=== PATIENT | female | born 1965 | race Caucasian/White ===

== ENCOUNTER 2016-09-16 17:23 | Inpatient (IN) | payer MEDICARE, OTHER ==
--- NOTE | ~2016-09-16 | HP ---
History And Physical [place] [id number] [facility] [place]. [address] NAME: ANNABELLA PROCTOR : 61 STATUS : ADM Laz PAT#: [id number] AGE: 50 ADM/REG DATE : 09/16/16 MR#: [id number] REPORT SERV DATE: 09/17/16 DICTATED BY: ROLANDO LE DATE: 09/16/16 REPORT STATUS : Draft TRANSCRIBED BY: MODElver DATE: 09/16/16 DATE OF ADMISSION: 09/16/2016 HISTORY OF PRESENT ILLNESS: Ms. Proctor is a 50-year-old female patient with a history of bipolar depression, migraine headaches, and COPD for which she takes multiple medications on a regular basis comes in because of nausea, vomiting, and abdominal soreness from the nausea and vomiting for the last three days. The patient also reports diarrhea for the last three days. The patient states that she may have thrown up at least five or six times a day and had at least seven to eight times a day of diarrhea and has not been able to keep anything down whatsoever for the last three days. According to the patient, history of presenting illness is that all what this brought about was her mother moving in with her. She states that her mother lives in another state and she was supposed to be put into Bridge here in the [facility] [place], and hence, the family brought her over here. The patient states that she is the only one who is taking care of her mother, and for the last few weeks, she could not handle it. She states that it is too much for her to take care of her mother who is pretty much bed-bound and the patient did not give me a reason as to why. However, she states that the stress of it has been too much on her, she has doubled up on her smoking and she has been so stressed and all this started while she was being stressed about three days ago she stays. She actually had thrown up so much that she passed out. is with the patient and he gives me all this history also. REVIEW OF SYSTEMS: The patient denies any headache at this time, any chest pain, shortness of breath, or fever. She does state that her upper abdomen is sore because of all the throwing up. She denies any lower abdominal soreness. She denies any blood in stool, dysuria, or hematuria. She denies any other acute joint pains, etc. PAST MEDICAL HISTORY: Significant for bipolar disorder, depression, chronic migraine headaches for which she takes Topamax and other narcotics, and also COPD. SOCIAL HISTORY: The patient smokes about two packs a day, does not drink any alcohol. She denies any illicit drug use and she is and lives with her . Recently, the stress of taking care of her mother has been too much for her. FAMILY HISTORY: Positive for diabetes in both parents. ALLERGIES: THE PATIENT IS ALLERGIC TO ANESTHETICS LIKE AMIDE TYPE AND TAL TYPE OF ANESTHETICS AND FENOFIBRATE. MEDICATIONS: The patient states that her regular medications include Zovirax 800 mg once a day that she takes for prevention of herpes, Ventolin HFA two puffs every four hours, baclofen 10 mg once a day, Bumex 1 mg once a day, fluoxetine 20 mg once a day, fluticasone nasal spray, [place]co 10/325 one every six hours p.r.n., Imdur 30 mg once a day, Latuda 60 mg once a day, Mobic 15 mg once a day, Singulair 10 mg once a day, MS Contin 15 mg once a day for migraines, Lyrica 150 mg p.o. t.i.d., Spiriva Respimat, and Topamax 100 mg twice a day. History And Physical [address] [address] NAME: ANNABELLA PROCTOR : 61 STATUS : ADM Laz PAT#: [id number] AGE: 50 ADM/REG DATE : 09/16/16 MR#: [id number] REPORT SERV DATE: 09/17/16 DICTATED BY: ROLANDO LE DATE: 09/16/16 REPORT STATUS : Draft TRANSCRIBED BY: MODL DATE: 09/16/16 PHYSICAL EXAMINATION: GENERAL: On examination, the patient is alert, oriented, able to give her history herself. She appears weak. Her skin and mucous membranes appear very dry. NECK: There is no JVD thyromegaly. HEENT: There is no facial asymmetry or droop. CARDIOVASCULAR SYSTEM: S1 and S2 appreciated. Sinus rhythm. No murmurs, rubs, or gallops noted. RESPIRATORY SYSTEM: Clear lungs. Poor entry to the lung bases noted probably because of her central obesity and also her not moving the upper part of the abdomen. She states that the abdomen itself is sore from all the throwing up. ABDOMEN: There is definitely tenderness in the upper aspect of the abdomen, but there is no guarding or rigidity. Bowel sounds are appreciated. Rest of the abdomen is normal. There is no hepatosplenomegaly or masses. No organomegaly. EXTREMITIES: There is no pedal edema. Pedal pulses are well felt. NEUROLOGIC: Normal. No deficits. MUSCULOSKELETAL: Normal at this time. PSYCHIATRIC: Positive for bipolar depression. LABORATORY DATA: Labs that I have on this patient shows an elevated WBC count at 13,000 and electrolyte profile shows low potassium at 2.6. Her BUN is normal. Creatinine is normal. Blood glucose level is 107. Amylase is normal. Lipase is normal. CT scan of the abdomen shows no acute abnormality except that the lower part of the lungs have a ground-glass appearance suggesting infiltrate/inflammation. UA is negative for any infection even though urine is just cloudy. ASSESSMENT: My assessment on this patient is dehydration from nausea, vomiting, and diarrhea. At this time, I do not know the cause. 1. Bibasilar infiltrates on chest x-ray, probably inflammation/possible that it is just atelectasis of both lungs as the patient has poor mobility of her chest now because of her upper abdominal pain. 2. For this, admit the patient, replace IV fluids, potassium and symptomatically treat the patient for pain, nausea, and vomiting. For the bibasilar infiltrates, we will repeat a chest x-ray, but we will start her on IV azithromycin 500 mg once a day. 3. Regarding diagnostic workup, we will go ahead and check a procalcitonin level and lactate level. 4. We will also check an EKG. 5. We will repeat a chest x-ray. 6. For her diarrhea, we will send off stool for ova, parasites, Clostridium difficile, stool culture, and also stool for Hemoccult. We will put this patient under observation and observe to see how her symptoms will die turner within the next day or so and also repeat her electrolytes to make sure that her potassium is corrected. I will follow this patient as an observation. History And Physical [address] [place]. [address] NAME: ANNABELLA PROCTOR : 61 STATUS : ADM Laz PAT#: [id number] AGE: 50 ADM/REG DATE : 09/16/16 MR#: [id number] REPORT SERV DATE: 09/17/16 DICTATED BY: ROLANDO LE DATE: 09/16/16 REPORT STATUS : Draft TRANSCRIBED BY: MODL DATE: 09/16/16 RRA/JUNIORL Rolando Le M.D. / [id number] CC: Christo Romo UDIT
--- NOTE | ~2016-09-16 | DS ---
Discharge Summary [facility] [address] [place]. [address] NAME: ANNABELLA VALENCIA : 61 STATUS : DIS IN PAT#: [id number] AGE: 50 ADM/REG DATE : 09/16/16 MR#: [id number] REPORT SERV DATE: 09/19/16 DICTATED BY: ROLANDO LE DATE: 09/18/16 REPORT STATUS : Draft TRANSCRIBED BY: MODL DATE: 09/18/16 ADMISSION DATE: 09/16/2016 DISCHARGE DATE: 09/18/2016 Date of discharge from observation is 09/18/2016. CONDITION ON DISCHARGE: Stable. DISPOSITION: Discharged to home. ADVICE ON DISCHARGE: To follow up with GI specialist within the next four to six weeks as the patient is over 50 years of age and needs a colonoscopy for screening and besides her stool Hemoccult is positive. Even though there is no alexander visible bleed, the patient attributes this to constipation. There is still some blood in stool, could be from hemorrhoids, but the patient does need a colonoscopy, this was made very clear to the patient. The patient will also follow up with PCP within the next one to two weeks. DIAGNOSES ON DISCHARGE: 1. Dehydration from nausea, vomiting, and diarrhea - resolved. Nausea and vomiting from acute gastritis, probably resolved. 2. Unspecified or nonspecific diarrhea - resolved. 3. Hypokalemia - resolved. 4. Bilateral pulmonary infiltrates in the lung bases, which are probably nonspecific as the patient has negative lactate and procalcitonin level and her leukocytosis has resolved. However, she just finished three more days of azithromycin to finish her course of Z-Justin. She was given two days worth of IV azithromycin while in the hospital. She feels much better on the day of discharge, and we are advancing her diet from full liquids to soft solids, and if she tolerates this, the patient will be going on home. Her regular and chronic problems that have been addressed in history and physical exam have all remained stable at this time and these include multiple psychiatric issues including depression, bipolar disorder, anxiety. The patient also is on chronically dependent on narcotics for migraine headaches for which she gets prescriptions for morphine from her primary care physician. The patient also takes Topamax and a host of other medications, which will all be resumed at this time. She is also on high blood pressure pills, which will all be resumed at this time. COPD, stable. The patient has been advised to stop smoking completely and she understands the risks of continuing to smoke. Most recent lab reports I have on this patient include a CBC that shows a WBC count of 7.8, Discharge Summary [place] [address] [place]. [address] NAME: ANNABELLA VALENCIA : 61 STATUS : DIS IN PAT#: [id number] AGE: 50 ADM/REG DATE : 09/16/16 MR#: [id number] REPORT SERV DATE: 09/19/16 DICTATED BY: ROLANDO LE DATE: 09/18/16 REPORT STATUS : Draft TRANSCRIBED BY: MODL DATE: 09/18/16 hemoglobin 11.4, hematocrit 35.2, and platelet count of 261. Her electrolytes are normal now, so is BUN and creatinine. Stool cultures have come back negative for Shiga toxin, negative for C. diff, and negative for ova and parasites, negative for Giardia and Cryptosporidium. The patient will be going home on the following medications: The only new medications as mentioned above will be azithromycin 250 mg once a day for three more days; Diflucan 150 mg x1 dose to prevent yeast infection; and also the patient requests Ativan specifically for anxiety, so I have given her a prescription for 1 mg of Ativan to take half a tablet twice a day #5 only and no more. The patient is to follow up with her psychiatrist regarding her anxiety, bipolar disorder, and depression. The patient will resume the following home medications: Zovirax 800 mg once a day for prevention of recurrent herpes, Bumex 1 mg once a day, Sarafem 60 mg once a day, Latuda 60 mg once a day, Lyrica 150 mg p.o. t.i.d., Imdur 30 mg once a day, Spiriva as directed, Topamax 100 mg tablet once a day, and Singulair 10 mg tablet once a day. The patient will also resume her baclofen 10 mg once a day, MS Contin 15 mg once a day, Mobic 15 mg once a day, and her fluticasone nasal spray besides the Ventolin. The patient hence is being discharged from observation in stable condition. I have spent about 35 minutes in coordinating discharge care of this patient including face- to-face encounter and summarizing this discharge. DICTATED BY: Christo Romo/ERLINDA Rolando Le M.D. / [id number] CC: Chrsito Romo UDIT
[2016-09-16 16:11] LABS: WBC (NOT ORDERED) (RFLEX) 0 (0-5)
[2016-09-16 16:19] LABS: BASOPHILS 0.1 %; BASOPHILS ABSOLUTE 0.02 10/3/uL (0.0-0.16); EOSINOPHILS 0.1 %; EOSINOPHILS ABSOLUTE 0.02 10/3/uL (0.0-0.53); ER CBC TAT 0 Hrs 09 Mins; HEMATOCRIT 39.3 % (36.0-48.0); HEMOGLOBIN 13.5 g/dL (12.0-16.0); IMMATURE GRANULOCYTES 0.1 %; IMMATURE GRANULOCYTES ABSOLUTE 0.02 10/3/uL (0.0-0.11); LYMPHOCYTES 9.7 %; LYMPHOCYTES ABSOLUTE 1.34 10/3/uL (0.67-4.30); MEAN CORPUS HGB CONC 34.4 g/dL (32.0-36.0); MEAN CORPUSCULAR HEMOGLOB 32.9 pg (26.0-34.0); MEAN CORPUSCULAR VOLUME 95.9 fL (80-100); MEAN PLATELET VOLUME 11.8 fL (9.2-13.0); MONOCYTES 4.9 %; MONOCYTES ABSOLUTE 0.68 10/3/uL (0.21-1.20); NEUTROPHILS 85.1 %; NEUTROPHILS ABSOLUTE 11.74 10/3/uL (2.02-8.40); PLATELET COUNT 291 10/3/uL (150-400); RBC DISTRIBUTION WIDTH 13.8 % (12.0-16.0); WHITE BLOOD CELLS 13.8 10/3/uL (4.5-10.5)
[2016-09-16 16:20] LABS: ASCORBIC ACID (UR NOT ORDER) NEG (NEG); BILIRUBIN, URINE NEGATIVE (NEG); ER URINALYSIS TAT 0 Hrs 10 Mins; KETONE, URINE 20 MG/DL (NEG); LEUKOCYTE ESTERASE(NOT OR NEG (NEG); MANUAL DIFF NO %; NITRITE (URINE) NEG (NEG)
[2016-09-16 16:35] LABS: A/G RATIO 0.6 (0.7-1.9); ALBUMIN 2.8 G/DL (3.5-5.0); ALKALINE PHOSPHATASE 110 U/L (45-117); BUN (BLOOD UREA NITROGEN) 14 MG/DL (6-23); CALCIUM, SERUM 9.6 MG/DL (8.5-10.4); CHLORIDE, SERUM 108 MMOL/L (96-112); CO2 (CARBON DIOXIDE) 28 MMOL/L (24-34); GFR AFRICAN AMERICAN 121 ML/MIN (>=60); GFR NON AFRICAN AMERICAN 105 ML/MIN (>=60); GLOBULIN 4.5 G/DL (2.5-4.1); GLUCOSE, SERUM 107 MG/DL (60-99); SGOT(AST) 11 U/L (5-40); SGPT(ALT) 15 U/L (5-65); SODIUM, SERUM 143 MMOL/L (135-148); TOTAL BILIRUBIN 0.4 MG/DL (0-1.2); TOTAL PROTEIN 7.3 G/DL (6.0-8.5)
[2016-09-16 16:38] LABS: POTASSIUM, SERUM 2.6 MMOL/L (3.5-5.3)
[~2016-09-16 17:23] MED LIST: *UNABLE3; ADVAIR250; ADVAIR250 INH; ASAB PO; ATORVASTATIN PO; BUM1 PO; EXCEDRIN EXTRA1 EACH PO; FLONASE NAS; HYDROCHLOROT25 MG PO; IMDUR30 PO; ISOSORBIDE PO; LATUDA60 MG PO; LIPITOR20 PO; LYRICA150 MG PO; MOBIC15 MG PO; NORCO1 TAB PO; PROAIR HFA INH; PROTONIX PO; PROVENTSOL INH; PROZAC PO; SINGULAIR1 PO; SPIRIVA; SPIRIVA INH; STOOL SOFTNER PO; TOPAMAX100 PO; VITAMIN D3 PO; ZOVI800 PO; [UNRECOGNIZED DRUG - OTHER] V
[2016-09-16] MEDS ORDERED: SARAFEM20 M1 PO (17:24)
[2016-09-16] MEDS ORDERED: LATUDA60 MG PO (17:24)
[2016-09-16] MEDS ORDERED: LYRICA150 MG PO (17:25)
[2016-09-16] MEDS ORDERED: SPIRIVA RESPIMAT INH (17:28)
[2016-09-16] MEDS ORDERED: IMDUR30 PO (17:28)
[2016-09-16] MEDS ORDERED: SINGULAIR1 PO (17:30)
[2016-09-16] MEDS ORDERED: TROKENDI PO (17:30)
[2016-09-16] MEDS ORDERED: NORCO1 TAB PO (17:31)
[2016-09-16] MEDS ORDERED: VENTOLIN HFA INH (17:32)
[2016-09-16] MEDS ORDERED: FLONASE NAS (17:32)
[2016-09-16] MEDS ORDERED: LIOR10 PO (17:33)
[2016-09-16] MEDS ORDERED: TOPAMAX100 PO (17:35)
[2016-09-16] MEDS ORDERED: MSCONT15 PO (17:37)
[2016-09-16] MEDS ORDERED: MOBIC15 MG PO (17:37)
[2016-09-16 21:52] LABS: PROCALCITONIN 0.07 ng/mL (<0.5)
[2016-09-17 07:18] LABS: BASOPHILS 0.1 %; BASOPHILS ABSOLUTE 0.01 10/3/uL (0.0-0.16); EOSINOPHILS 1.2 %; EOSINOPHILS ABSOLUTE 0.12 10/3/uL (0.0-0.53); HEMATOCRIT 35.5 % (36.0-48.0); HEMOGLOBIN 11.7 g/dL (12.0-16.0); IMMATURE GRANULOCYTES 0.2 %; IMMATURE GRANULOCYTES ABSOLUTE 0.02 10/3/uL (0.0-0.11); LYMPHOCYTES 22.3 %; LYMPHOCYTES ABSOLUTE 2.26 10/3/uL (0.67-4.30); MEAN CORPUSCULAR HEMOGLOB 32.2 pg (26.0-34.0); MEAN CORPUSCULAR VOLUME 97.8 fL (80-100); MEAN PLATELET VOLUME 11.4 fL (9.2-13.0); MONOCYTES 6.4 %; MONOCYTES ABSOLUTE 0.65 10/3/uL (0.21-1.20); NEUTROPHILS 69.8 %; NEUTROPHILS ABSOLUTE 7.09 10/3/uL (2.02-8.40); PLATELET COUNT 236 10/3/uL (150-400); RBC DISTRIBUTION WIDTH 14.1 % (12.0-16.0); RED CELL COUNT 3.63 10/6/uL (4.0-5.6); WHITE BLOOD CELLS 10.2 10/3/uL (4.5-10.5)
[2016-09-17 07:20] LABS: MANUAL DIFF NO %
[2016-09-17 07:34] LABS: BUN (BLOOD UREA NITROGEN) 11 MG/DL (6-23); CALCIUM, SERUM 8.7 MG/DL (8.5-10.4); CHLORIDE, SERUM 112 MMOL/L (96-112); CO2 (CARBON DIOXIDE) 25 MMOL/L (24-34); CREATININE 0.58 MG/DL (0.55-1.02); GFR AFRICAN AMERICAN 123 ML/MIN (>=60); GFR NON AFRICAN AMERICAN 106 ML/MIN (>=60); SGOT(AST) 13 U/L (5-40); SGPT(ALT) 11 U/L (5-65); SODIUM, SERUM 144 MMOL/L (135-148); TOTAL BILIRUBIN 0.2 MG/DL (0-1.2)
[2016-09-17 07:35] LABS: A/G RATIO 0.6 (0.7-1.9); ALBUMIN 2.2 G/DL (3.5-5.0); ALKALINE PHOSPHATASE 82 U/L (45-117); GLOBULIN 3.5 G/DL (2.5-4.1); GLUCOSE, SERUM 80 MG/DL (60-99); POTASSIUM, SERUM 3.7 MMOL/L (3.5-5.3); TOTAL PROTEIN 5.7 G/DL (6.0-8.5)
[2016-09-18 06:24] LABS: BASOPHILS 0.5 %; BASOPHILS ABSOLUTE 0.04 10/3/uL (0.0-0.16); EOSINOPHILS 2.3 %; EOSINOPHILS ABSOLUTE 0.18 10/3/uL (0.0-0.53); HEMATOCRIT 35.2 % (36.0-48.0); HEMOGLOBIN 11.4 g/dL (12.0-16.0); IMMATURE GRANULOCYTES 0.4 %; IMMATURE GRANULOCYTES ABSOLUTE 0.03 10/3/uL (0.0-0.11); LYMPHOCYTES 35.5 %; LYMPHOCYTES ABSOLUTE 2.75 10/3/uL (0.67-4.30); MEAN CORPUS HGB CONC 32.4 g/dL (32.0-36.0); MEAN CORPUSCULAR HEMOGLOB 32.2 pg (26.0-34.0); MEAN CORPUSCULAR VOLUME 99.4 fL (80-100); MEAN PLATELET VOLUME 11.2 fL (9.2-13.0); MONOCYTES 5.3 %; MONOCYTES ABSOLUTE 0.41 10/3/uL (0.21-1.20); NEUTROPHILS ABSOLUTE 4.34 10/3/uL (2.02-8.40); PLATELET COUNT 261 10/3/uL (150-400); RBC DISTRIBUTION WIDTH 14.4 % (12.0-16.0); RED CELL COUNT 3.54 10/6/uL (4.0-5.6); WHITE BLOOD CELLS 7.8 10/3/uL (4.5-10.5)
[2016-09-18 06:25] LABS: MANUAL DIFF NO %
[2016-09-18 06:34] LABS: A/G RATIO 0.6 (0.7-1.9); ALBUMIN 2.2 G/DL (3.5-5.0); ALKALINE PHOSPHATASE 78 U/L (45-117); BUN (BLOOD UREA NITROGEN) 11 MG/DL (6-23); CALCIUM, SERUM 8.8 MG/DL (8.5-10.4); CHLORIDE, SERUM 111 MMOL/L (96-112); CO2 (CARBON DIOXIDE) 28 MMOL/L (24-34); CREATININE 0.59 MG/DL (0.55-1.02); GFR AFRICAN AMERICAN 122 ML/MIN (>=60); GFR NON AFRICAN AMERICAN 105 ML/MIN (>=60); GLOBULIN 3.5 G/DL (2.5-4.1); POTASSIUM, SERUM 4.2 MMOL/L (3.5-5.3); SGOT(AST) 9 U/L (5-40); SGPT(ALT) 12 U/L (5-65); SODIUM, SERUM 145 MMOL/L (135-148); TOTAL BILIRUBIN 0.4 MG/DL (0-1.2); TOTAL PROTEIN 5.7 G/DL (6.0-8.5)
[2016-09-18 06:35] LABS: GLUCOSE, SERUM 109 MG/DL (60-99)
[2016-09-18] MEDS ORDERED: Z-PAK PO (09:34)
[2016-09-18] MEDS ORDERED: ATV1 PO (09:34)
[2016-09-18] MEDS ORDERED: FLUCON150 PO (09:35)
== END 2016-09-18 12:48 | disposition home or self-care (01) | DRG 641 ==
LOC: ER 17:23 → 5SO 18:38
PROVIDERS: Physician Assistant
DX: E86.0 Dehydration (principal); J44.9 Chronic obstructive pulmonary disease, unspecified; K29.00 Acute gastritis without bleeding; E87.6 Hypokalemia; F31.9 Bipolar disorder, unspecified; F41.9 Anxiety disorder, unspecified; Z79.891 Long term (current) use of opiate analgesic; F17.210 Nicotine dependence, cigarettes, uncomplicated; Z79.899 Other long term (current) drug therapy; Z74.01 Bed confinement status; Z83.3 Family history of diabetes mellitus; Z88.8 Allergy status to other drugs, medicaments and biological substances
CPT/HCPCS: 71010; 74176; 80053; 81001; 82150; 82272; 83605; 83690; 84145; 85025; 87045; 87046; 87046-59; 87328; 87329; 87493; 87493-59; 87899; 87899-59; 93005; 96365; 96375; 99285; A9270-GY; J0456; J1170; J2405